=== PATIENT | female | born 1990 | race Caucasian/White ===

== ENCOUNTER 2021-04-28 17:28 | Emergency (ER) | payer OTHER ==
[~2021-04-28] VITALS: Ht 165.1 cm; Wt 68.0 kg
--- NOTE | 2021-04-28 18:06 | RAD ---
PA chest. HISTORY: Short of breath, chest pain and tightness PA view was taken of the chest. There is no pneumothorax or pleural effusion. Lungs are free of infil trates. Heart is normal in size. IMPRESSION: 1. No acute chest disease. Electronically signed by: Mario Aragon MD (04/28/2021 6:03 PM) [facility]
[2021-04-28 20:17] VITALS: BP 137/97
--- NOTE | 2021-04-28 20:46 | PHYS DOC ---
Past History Past Surgical History: No Surgical History (IRAIS MOORE APRN) Alcohol Use: None (IRAIS MOORE APRN) Adult General Chief Complaint Chief Complaint: SHORTNESS OF BREATH HPI HPI 30-year-old female presents to ED via POV with complaints of shortness of breath with productive and nonproductive cough, headache, body aches, and fatigue x 2 days. She was having the same symptoms 2 weeks ago and was seen at an urgent care and given prednisone 20 mg x 5 days which had helped until recently. Her influenza and COVID were also negative at that time. She took Sudafed and ibuprofen at 1300 today. She denies chest pain or fevers. She denies abdominal pain, nausea, vomiting, and diarrhea. (IRAIS MOORE APRN) Review of Systems Review of Systems Constitutional: Denies fever or chills [] Respiratory: See HPI Cardiovascular: No additional information not addressed in HPI [] GI: See HPI All other systems were reviewed and found to be within normal limits, except as documented in this note. (IRAIS MOORE APRN) Allergies Allergies Allergies Coded Allergies Type Severity Reaction Last Updated Verified No Known Drug Allergies 04/28/21 No (IRAIS MOORE APRN) Physical Exam Physical Exam Constitutional: Well developed, well nourished, no acute distress, non-toxic appearance. [] HENT: Normocephalic, atraumatic, bilateral external ears normal, oropharynx moist, no oral exudates, nose normal. [] Eyes: PERRL, EOMI, conjunctiva normal, no discharge. [] Neck: Normal range of motion, no tenderness, supple, no stridor. [] Cardiovascular:Heart rate regular rhythm, no murmur [] Lungs & Thorax: Bilateral breath sounds clear to auscultation [] Abdomen: Bowel sounds normal, soft, no tenderness, no masses, no pulsatile masses. [] Skin: Warm, dry, no erythema, no rash. [] Back: Normal range of motion. Extremities: No tenderness, no cyanosis, no clubbing, ROM intact, no edema. [] Neurologic: Alert and oriented X 3, normal motor function, normal sensory function, no focal deficits noted. [] Psychologic: Affect normal, judgement normal, mood normal. [] (IRAIS MOORE APRN) Current Patient Data Vital Signs Vital Signs Date Time Temp Pulse Resp B/P (MAP) Pulse Ox O2 Delivery O2 Flow Rate FiO2 04/28/21 20:17 99.0 118 18 137/97 (110) 100 Room Air (IRAIS MOORE APRN) EKG EKG [] (IRAIS MOORE APRN) Radiology/Procedures Radiology/Procedures IMAGING REPORT Signed PATIENT: RALEIGH GARCIA ACCOUNT: [id number] : 1990 LOCATION: ER AGE: 30 SEX: F EXAM STATUS: REG ER ORD. PHYSICIAN: BATOOL BENITEZ DO REASON: SHORTNESS OF BREATH, CHEST PAIN AND TIGHTNESS PROCEDURE: CHEST AP ONLY PA chest. HISTORY: Short of breath, chest pain and tightness PA view was taken of the chest. There is no pneumothorax or pleural effusion. Lungs are free of infiltrates. Heart is normal in size. IMPRESSION: 1. No acute chest disease. Electronically signed by: Mario Aragon MD (04/28/2021 6:03 PM) [facility] DICTATED AND SIGNED BY: MARIO ARAGON MD DATE: 04/28/211801 [] (IRAIS MOORE APRN) Heart Score C/O Chest Pain: No Risk Factors: Risk Factors: DM, Current or recent (<one month) smoker, HTN, HLP, family history of CAD, obesity. Risk Scores: Risk Factors: DM, Current or recent (<one month) smoker, HTN, HLP, family history of CAD, obesity. (IRAIS MOORE APRN) Course & Med Decision Making Course & Med Decision Making 30-year-old female presents to ED with complaints of fatigue, shortness of breath with nonproductive and productive cough, body aches, and headache x2 days. A chest x-ray, influenza test, and COVID test were performed here. No acute findings on the chest x-ray. Influenza test and COVID test were negative. Discussed with the patient all findings and diagnostic testing. Patient instructed to push fluids and rest along with medications to treat her symptoms, including: Ibuprofen, Tylenol, Mucinex or other OTC cough syrups. She was instructed to follow up with her PCP tomorrow if symptoms worsen. Return precautions were discussed at length and patient voiced understanding and agreement with the plan. Hemodynamically stable at time of disposition. (IRAIS MOORE APRN) Dragon Disclaimer Dragon Disclaimer This electronic medical record was generated, in whole or in part, using a voice recognition dictation system. (IRAIS MOORE APRN) Departure Departure: Disposition: HOME / SELF CARE / HOMELESS Condition: STABLE Referrals: CEFERINO FARNSWORTH DO, [facility] (PCP) Patient Instructions: Viral Syndrome Additional Instructions: You were seen in the ED today for cough, headache, body aches and fatigue. Influenza and COVID tests are both negative. Your chest x-ray was also negative. Your symptoms are consistent with a viral illness. You may take ibuprofen, Tylenol, and [id number]-[id number] cough medication, including Mucinex for your symptoms. Push fluid intake and rest. Your symptoms should gradually improve. Please follow-up with your PCP for continued care or return to ER for worsening symptoms or uncontrollable fever. Attending Signature Attending Signature I have participated in the care of this patient and I have reviewed and agree with all pertinent clinical information above including history, exam, and recommendations. (CLIFFORD ESPAÑA MD) IRAIS MOORE APRN Apr 28, 2021 20:46 CLIFFORD ESPAÑA MD May 03, 2021 20:06
[2021-04-28 21:16] LABS: INFLUENZA A PATIENT NEGATIVE (NEGATIVE); INFLUENZA B PATIENT NEGATIVE (NEGATIVE)
== END 2021-04-28 22:29 | disposition home or self-care (01) ==
LOC: ER 17:28
DX: R06.02 Shortness of breath (principal); R05.9 Cough, unspecified; R51.9 Headache, unspecified; Z20.822 Contact with and (suspected) exposure to COVID-19
CPT/HCPCS: 71045; 87428; 99284